=== PATIENT | female | born 1935 | race Caucasian/White ===

== ENCOUNTER 2018-06-03 10:38 | Emergency (ER) | payer OTHER, MEDICARE, SELFPAY ==
[2018-06-03] VITALS (7 sets, daily range): BP systolic 127–144; BP diastolic 71–95; PULSE 64–86; RESP 9–22; TEMP 36.7; O2SAT 98–99
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
[2018-06-03 11:50] LABS: Abs Immature Grans 0.03 k/cumm (0.0-0.09); Absolute Basophil Count 0.03 k/cumm (0.0-0.2); Absolute Eosinophil Count 0.07 k/cumm (0.0-0.7); Absolute Monocyte Count 0.65 k/cumm (0.11-0.7); Absolute Neutrophil Count 5.51 k/cumm (1.2-6.7); Basophils % 0.4; Eosinophils % 0.9; HCT 41.8 % (36.0-46.0); HGB 14.3 g/dL (12.0-15.5); Immature Grans % 0.4; Lymphocytes % 23.2; Mean Corp. HGB Concentration 34.2 g/dL (32.0-36.0); Mean Corpuscular Hemoglobin 31.6 pg (27.0-33.0); Mean Corpuscular Volume 92.5 fL (80-95); Mean Platelet Volume 10.7 fL (8.0-11.0); Monocytes % 7.9; Neutrophils % 67.2; Platelet Count 241 x1000/uL (130-400); RBC 4.52 m/cumm (4.00-5.20); RBC Distribution Width 14.1 % (11.7-14.6); White Blood Cell Count 8.19 k/cumm (4.4-10.8)
[2018-06-03] MEDS: Omnipaque 350 MG/ML 100 ML BTL IJ (11:59)
[2018-06-03 12:12] LABS: ALT 27 U/L (12-78); AST 22 U/L (15-37); Albumin 3.9 g/dL (3.4-5.0); Alkaline Phosphatase 108 U/L (46-116); Anion Gap 9.5 mmol/L (3-11); BUN 23 mg/dL (7-18); Bilirubin, Total 0.4 mg/dL (0.2-1.0); CO2 25.5 mmol/L (21.0-32.0); CREATININE 1.01 mg/dL (0.55-1.02); Calcium 10.6 mg/dL (8.5-10.1); Chloride 104 mmol/L (98-107); Estimated GFR 52.48 (mL/min/1.73m2); Glucose 116 mg/dL (70-100); Magnesium 2.3 mg/dL (1.8-2.4); Potassium 4.1 mmol/L (3.5-5.1); Sodium 139 mmol/L (136-145); Total Protein 7.5 g/dL (6.4-8.2); Troponin I < 0.02 ng/mL (0.00-0.06)
[2018-06-03] MEDS: Normal Saline 1,000 ML 1000 ML IV (12:15)
--- NOTE | 2018-06-03 12:16 | NUR.NOTE ---
Nursing Note: 1145: Pt to CT scan with ED RN. Spine percautions maintained. Pt is able to move all extremities before scan and following return to the ED. Pt continues alert/oriented.
[2018-06-03 12:29] LABS: Bilirubin Negative (Negative); Blood Trace-intact (Negative); Clarity Clear; Glucose Negative (Negative); Ketones Negative (Negative); Leukocyte Esterase Moderate (Negative); Nitrite Negative (Negative); Specific Gravity <= 1.005 (1.005-1.025); Urobilinogen 0.2 EU/dL (Up TO 0.2)
[2018-06-03 12:43] LABS: Epithelial Cells Few HPF (Negative)
[2018-06-03 12:44] LABS: Bacteria Many HPF (Negative); C & S Indicated? Yes; Casts Negative LPF (Negative); Crystals Negative HPF (Negative); Mucus Negative (Negative); Other Cells Mod Transitional (Negative)
--- NOTE | 2018-06-03 12:58 | NUR.NOTE ---
Nursing Note: ED PA attempts to reapply c-collar following exam but pt refuses and states I am really OK, I don't want it.
--- NOTE | 2018-06-03 13:00 | NUR.NOTE ---
Nursing Note: 1300: Pt sitting up on bed and receiving hydration and making phone calls for a ride home. Feeling better with mild STEIN that continues.
--- NOTE | 2018-06-07 15:28 | ED.FU.B ---
- Follow Up Follow Up Plan: Culture results from 06/03/2018. Urine culture growing E. coli 50,000-200,000 colonies/mL, appears pansensitive. I reviewed urinalysis from date of service and specimen did have some epithelial cells. I called and spoke with the patient about the results. Patient denies any urinary symptoms, she has no dysuria, urgency or increased urinary frequency. I advised that specimen may have been contaminated given that she has no symptoms and recommended that she follow-up with her primary care physician for repeat testing. Encouraged her to call her primary care physician as soon as possible to arrange this. Also noted that should she develop any symptoms she should return to emerge department for further treatment.
== END 2018-06-03 13:31 | disposition home or self-care (01) ==
PROVIDERS: Physician Assistant; Emergency Provider Student in an Organized Health Care Education/Training Program; PCP Nurse Practitioner Family
DX: S00.93XA Contusion of unspecified part of head, initial encounter (principal); R07.9 Chest pain, unspecified; M54.2 Cervicalgia; V03.00XA Pedestrian on foot injured in collision with car, pick-up truck or van in nontraffic accident, initial encounter; Y92.481 Parking lot as the place of occurrence of the external cause; N18.9 Chronic kidney disease, unspecified
CPT/HCPCS: 70450; 71260; 72125; 74177; 93005; 99285 ×2; 80053; 87077; 81003; 81015; 83735; 84484; 85025; 87086; 87186; 93010; J3490

== ENCOUNTER 2019-03-11 13:16 | Outpatient (REF) | payer MEDICARE, OTHER, SELFPAY | END 2019-03-11 13:36 | LOC: LBN 13:16 | PROVIDERS: PCP Nurse Practitioner Family; Visit Provider Nurse Practitioner | DX: R82.90 Unspecified abnormal findings in urine (principal) | CPT/HCPCS: 87077; 87086; 87186 ==

== ENCOUNTER 2019-04-14 10:02 | Outpatient (CLI) | payer MEDICARE, OTHER, SELFPAY ==
[2019-04-14 10:27] LABS: Abs Immature Grans 0.01 k/cumm (0.0-0.09); Absolute Basophil Count 0.05 k/cumm (0.0-0.2); Absolute Eosinophil Count 0.04 k/cumm (0.0-0.7); Absolute Lymphocyte Count 1.96 k/cumm (1.2-3.4); Absolute Monocyte Count 0.47 k/cumm (0.11-0.7); Absolute Neutrophil Count 6.21 k/cumm (1.2-6.7); Basophils % 0.6; Eosinophils % 0.5; HCT 42.6 % (36.0-46.0); HGB 14.4 g/dL (12.0-15.5); Immature Grans % 0.1; Lymphocytes % 22.4; Mean Corp. HGB Concentration 33.8 g/dL (32.0-36.0); Mean Corpuscular Hemoglobin 30.8 pg (27.0-33.0); Mean Platelet Volume 10.3 fL (8.0-11.0); Monocytes % 5.4; Platelet Count 300 x1000/uL (130-400); RBC 4.68 m/cumm (4.00-5.20); White Blood Cell Count 8.74 k/cumm (4.4-10.8)
[2019-04-14 11:37] LABS: Hemoglobin A1C 5.8 % (4.5-6.2)
[2019-04-14 11:47] LABS: ALT 25 U/L (12-78); AST 21 U/L (15-37); Alkaline Phosphatase 123 U/L (46-116); BUN 20 mg/dL (7-18); Bilirubin, Total 0.5 mg/dL (0.2-1.0); CREATININE 0.99 mg/dL (0.55-1.02); Chloride 102 mmol/L (98-107); Glucose 111 mg/dL (70-100); Potassium 4.4 mmol/L (3.5-5.1); Sodium 137 mmol/L (136-145); Total Protein 7.3 g/dL (6.4-8.2)
[2019-04-14 12:01] LABS: Calcium 11.4 mg/dL (8.5-10.1)
[2019-04-15 10:37] LABS: Parathyroid Hormone,Intact 145 pg/ml (19-88)
== END 2019-04-14 10:22 ==
PROVIDERS: PCP Nurse Practitioner Family; Visit Provider Nurse Practitioner Family
DX: E21.0 Primary hyperparathyroidism (principal); N18.9 Chronic kidney disease, unspecified; R73.01 Impaired fasting glucose
CPT/HCPCS: 36415; 80053; 83036; 83970; 85025

== ENCOUNTER 2020-07-14 02:41 | Outpatient (CLI) | payer MEDICARE, OTHER, SELFPAY ==
[2020-07-14 12:22] LABS: Anion Gap 6.9 mmol/L (3-11); BUN 17 mg/dL (7-18); CO2 28.1 mmol/L (21.0-32.0); CREATININE 0.98 mg/dL (0.55-1.02); Calcium 9.8 mg/dL (8.5-10.1); Chloride 103 mmol/L (98-107); Estimated GFR 54.07 (mL/min/1.73m2); Glucose 89 mg/dL (74-106); Potassium 4.3 mmol/L (3.5-5.1); Sodium 138 mmol/L (136-145)
== END 2020-07-14 03:01 ==
PROVIDERS: PCP Nurse Practitioner Family; Visit Provider Family Medicine
DX: N18.9 Chronic kidney disease, unspecified (principal)
CPT/HCPCS: 36415; 80048

== ENCOUNTER 2023-02-24 21:43 | Emergency (ER) | payer MEDICARE, SELFPAY ==
[2023-02-24 21:22] VITALS: BP 177/86; PULSE 61; RESP 17; TEMP 36.5; O2SAT 99
--- NOTE | 2023-02-24 21:30 | DI.RAD_ITS ---
Exam(s) XR PELVIS AP XR FEMUR RT EXAM: XR PELVIS AP CLINICAL HISTORY: right hip pain. TECHNIQUE: 2D digital imaging was performed. COMPARISON: CR,XR XR FEMUR RT from 02/24/2023 FINDINGS: BONES: Fracture seen extending through the basicervical region of the femoral neck. Displacement is well as a few small comminuted fragments. No additional fractures. No bony destructive lesion is se en. Degenerative changes Are noted in the lumbar spine. JOINTS: No dislocation present. Moderate degenerative changes are noted at the right hip. There is a left hip prosthesis which is unremarkable. Severe degenerative changes are noted in the knee. Deg enerative changes are seen at the SI joints SOFT TISSUE: Normal. IMPRESSION: Displaced basicervical fracture of the right femur. DATA REPOSITORY: RADIATION DOSE DELIVERED:
--- NOTE | 2023-02-24 21:42 | W.ED.GENAD ---
Discharge Plan Disposition Patient Disposition: Critical Access Hospital Specific Critical Access Facility: Other Discharge Details Chief Complaint: Orthopedic Clinical Impression: Closed fracture of right hip Primary Care Provider: Kiki Barbosa ED Provider: Tonny Lagos Home Meds and New Rx's Prescriptions: No Action calcium carbonate 500 mg calcium (1,250 mg) tablet 1,000 mg PO DAILY lutein 40 mg capsule 40 mg PO DAILY Rx Instructions: administer with meals trazodone 50 mg tablet 25 mg PO HS Qty: 90 3RF cyanocobalamin (vitamin B-12) [Vitamin B-12] 1,000 MCG tablet extended release 1,000 mcg PO DAILY cholecalciferol (vitamin D3) 25 mcg (1,000 unit) tablet 2,000 unit PO DAILY mirtazapine 7.5 mg tablet 7.5 mg PO HS Qty: 90 2RF omeprazole 40 mg capsule,delayed release(DR/EC) 40 mg PO BID Qty: 180 1RF Rx Instructions: Take 40 mg twice daily at least 30 minutes before meals Medical Decision Making 87-year-old female with a past medical history of high cholesterol, GERD, CKD, on no blood thinners presents today after right hip pain. Patient states that she fell onto her right hip, she did not hit her head. She did not hit anything else. She had no loss of consciousness. She was not able to get up after this. She did call 911 and EMS brought her here. Pain is present in the right hip. Worsened with movement. Improved by nothing. She denies numbness or tingling. No chest pain lower leg pain, no other complaints at this time. Physical exam demonstrates pain at the right hip. Concern for right hip fracture. No other evidence of injury. No pain in the distal leg, chest or abdomen. We will get an x-ray for further assessment. We will monitor closely, insert a Bertrand and reassess. Patient does not want anything for pain at this time. 12:06 AM Patient has remained stable here in the ED. X-rays show evidence of a femoral neck fracture on the right. No other evidence of acute injury. Patient remained stable. Unfortunately we do not have orthopedics here for the next 5 days as [place]. We did reach [facility] they are [facility] and they have no orthopedics, Jeff and they are full. We did reach out to [facility] and they do have availability. I spoke with Dr. Ruano of orthopedics and he accepts the patient for admission. We will reach out to the hospitalist team for the medical admission component. Spoke with Dr. Adams of the hospitalist medicine team. She agrees with transfer and accepts the patient. Patient will be transferred. Discussed the case with patient's family who is at bedside. I have extensively reviewed the treatment plan with the patient. I have addressed all patient concerns at this time. I have also discussed the plan with the admitting physician and they agree with the current assessment and plan and have agreed to assume responsibility for the patient. All parties demonstrate verbal understanding and agreement with our assessment and plan at this time. The documentation in this chart was dictated using Quick [employer] dictation software. Please excuse any dictation errors. FINDINGS: Bones/joints: Displaced basicervical femoral neck fracture. The femoral head is seated within the acetabulum. Femoral shaft is unremarkable. No distal fracture. Soft tissues: No soft tissue foreign body. IMPRESSION: Displaced basicervical right femoral neck fracture. Thank you for allowing us to participate in the care of your patient. Dictated and Authenticated by: Luis Yin MD 02/24/2023 11:44 PM Eastern Time ([place] & [place]) FINDINGS: Bones/joints: Displaced right femoral neck fracture. No evidence of pelvic fracture or diastasis. Left hip total arthroplasty. No dislocation. Lumbosacral degenerative features. Soft tissues: Soft tissues are unremarkable. IMPRESSION: Displaced right femoral neck fracture. Thank you for allowing us to participate in the care of your patient. Dictated and Authenticated by: Luis Yin MD 02/24/2023 11:32 PM Eastern Time ([place] & [place]) FINDINGS: Lungs: Clear lungs. No acute consolidation. Pleural spaces: No pleural effusion. No pneumothorax. Heart/Mediastinum: Mild cardiac enlargement. Bones/joints: Degenerative thoracic spine disease. Right shoulder prosthesis. Old healed posterior right 5th and 6th rib fractures. IMPRESSION: 1. No acute cardiopulmonary changes. 2. Degenerative skeletal features. Old right rib fractures. 3. Mild cardiac enlargement. Thank you for allowing us to participate in the care of your patient. Dictated and Authenticated by: Luis Yin MD 02/24/2023 11:43 PM Eastern Time ([place] & [place]) HPI General Date/Time Provider Initiated Documentation: 02/24/23 22:17. HPI Narrative: 87-year-old female with a past medical history of high cholesterol, GERD, CKD, on no blood thinners presents today after right hip pain. Patient states that she fell onto her right hip, she did not hit her head. She did not hit anything else. She had no loss of consciousness. She was not able to get up after this. She did call 911 and EMS brought her here. Pain is present in the right hip. Worsened with movement. Improved by nothing. She denies numbness or tingling. No chest pain lower leg pain, no other complaints at this time. Related Data Home Medications Medication Instructions Recorded Confirmed cyanocobalamin (vitamin B-12) 1,000 mcg PO DAILY 07/10/17 02/24/23 1,000 mcg tablet,extended release (Vitamin B-12 ER) calcium carbonate 500 mg calcium 1,000 mg PO DAILY 07/15/20 02/24/23 (1,250 mg) tablet cholecalciferol (vitamin D3) 25 2,000 unit PO DAILY 07/15/20 02/24/23 mcg (1,000 unit) tablet lutein 40 mg capsule 40 mg PO DAILY 07/15/20 02/24/23 trazodone 50 mg tablet 25 mg PO HS insomnia #90 tab-caps 07/27/21 02/24/23 mirtazapine 7.5 mg tablet 7.5 mg PO HS #90 tab-caps 10/12/21 02/24/23 omeprazole 40 mg capsule,delayed 40 mg PO BID #180 tab-caps 01/06/22 02/24/23 release Previous Rx's Medication Instructions Recorded trazodone 50 mg tablet 25 mg PO HS insomnia #90 tab-caps 07/27/21 mirtazapine 7.5 mg tablet 7.5 mg PO HS #90 tab-caps 10/12/21 omeprazole 40 mg capsule,delayed 40 mg PO BID #180 tab-caps 01/06/22 release Allergies Allergy/AdvReac Type Severity Reaction Status Date / Time No Known Drug Allergies Allergy Verified 07/27/21 14:10 General Stated Complaint: Orthopedic MINERVA: 3 Review of Systems All systems reviewed & are unremarkable except as noted in HPI and below PFSH All Active Problems (Updated 02/25/23 @ 00:44 by Tonny Lagos DO) Closed fracture of right hip (Acute) Post-nasal drip (Acute) Chronic kidney disease, unspecified (Chronic 08/20/17) Gastroesophageal reflux disease (Chronic) Hyperlipidemia, unspecified (Chronic 08/20/17) IFG (impaired fasting glucose) (Chronic 08/20/17) Insomnia, unspecified (Chronic 08/29/17) Unspecified osteoarthritis, unspecified site (Chronic) Medical History Anxiety and depression Pneumonia x6-12 times, hospitalized once Surgical History (R)Knee Tendon Repair (08/10/15) (R)Shoulder Replacement (12/19/16) [facility] Arthroplasty of knee (~1989) L knee Jojo Cholecystectomy (~1964) Seun Extraction of cataract (~2014) B/L Foot surgery, left (~2005) Open Carpal Tunnel release (~1998) 1998-left hand, [address] [facility] Rectocele, Paravaginal repair (~1989) had 3 cuctocele/rectocele surgeries at [facility] Replacement of total knee joint (05/08/15) (L) S/P parathyroidectomy (~11/2019) Total replacement of hip (~2011) (L) Vaginal hysterectomy (~1977) [place] Family History Father , 64 Neoplasm Lung CA (smoker) Brother , Cancer Neoplasm Lung CA Son Neoplasm Leukemia Mother , Old age at age 99. No problems noted. Brother Neoplasm Prostate CA Brother , Liver CA at age 75. Neoplasm Liver CA Social History Smoking/Tobacco Use Status: Former Tobacco Use Smoking risk assessment performed?: Yes Alcohol Intake: current Alcohol Intake frequency: a few times a week Alcohol type: wine Drug use: Never Substance use type: does not use Caregiver/Support person: No Housing: house Number of Children: 3 Communication Needs: None What is your relationship status?: Panel score (0-1 are the most socially isolated patients): 0 What type of physical activity do you participate in: other Details: housework, gardening Frequency: daily Seatbelt use: always Working smoke detector in home: Yes Carbon monox detector in home: Yes Do you feel safe at home: Yes Do you feel safe in your relationship?: Yes Exam Narrative Exam Narrative: 1.Const: Well-nourished, Well-developed, appearing stated age 2.Eyes: PERRL, no conjunctival injection, and symmetrical lids. 3.ENT: Atraumatic external nose and ears. Moist MM. Neck: Symmetric, trachea midline, No thyromegaly. 4.CVS: +S1/S2, No murmurs or gallops. Peripheral pulses 2+ and equal in all extremities. Brisk capillary refill in all extremities. 5.RESP: Unlabored respiratory effort. Clear to auscultation bilaterally. No wheezes rales or rhonchi 6.GI: Soft, Nontender/Nondistended, No hepatosplenomegaly. No guarding or rebound. 7.MSK: Normocephalic patient demonstrates pain in her right passively. No pain with palpation though. Pain with logroll of the right leg given movement. At this time leg is slightly laterally rotated, but it is difficult to discern potential shortening. Pulses are intact. Sensation is intact distally. Pelvis is stable. 8.Skin: Warm, Dry. No rashes or lesions. 9.Neuro: orthopedic coder II-XII grossly intact. Sensation grossly intact, no focal neurologic deficits. 10.Psych: (AAO) x3. Appropriate mood and affect Course Vital Signs Vital signs: Vital Signs Temperature 36.5 C 02/24/23 21: Pulse 61 02/24/23 21: Respiratory Rate 17 02/24/23 21: Blood Pressure 177/86 H 02/24/23 21: Pulse Oximetry 99 02/24/23 21: Temperature 36.5 C 02/24/23 21: Temperature Source Temporal Artery Scan 02/24/23 21: Pulse 61 02/24/23 21: Respiratory Rate 17 02/24/23 21:22 Respiratory Effort Normal 02/24/23 21: Blood Pressure 177/86 H 02/24/23 21: Blood Pressure Position Sitting 02/24/23 21:22 Pulse Oximetry 99 02/24/23 21:22 Oxygen Delivery Method Room Air 02/24/23 21:22 Oxygen Flow Rate 0 02/24/23 21:22 Pain Level 4 02/24/23 21:22
[2023-02-24 21:52] LABS: Abs Immature Grans 0.08 10^3/uL (0.0-0.06); Absolute Basophil Count 0.06 10^3/uL (0.0-0.2); Absolute Eosinophil Count 0.17 10^3/uL (0.0-0.7); Absolute Lymphocyte Count 2.28 10^3/uL (1.2-3.4); Absolute Monocyte Count 0.53 10^3/uL (0.1-0.8); Basophils % 0.7; Eosinophils % 2.1; HCT 41.4 % (36.0-46.0); HGB 14.2 g/dL (11.2-15.7); Lymphocytes % 28.4; MCH 32.3 pg (27.0-33.0); MCHC 34.3 % (32.0-36.0); MCV 94 fL (80-95); MPV 9.9 fL (8.0-11.0); Monocytes % 6.6; Neutrophils % 61.2; Platelet Count 262 10^3/uL (130-400); RDW 14.1 % (11.7-14.6); RDW-SD 48.8 fL; WBC 8.02 10^3/uL (4.4-10.8)
[2023-02-24] MEDS: ACETAMINOPHEN 1,000 MG/100 ML BTL 400 MG IVPB (21:55)
[2023-02-24 22:06] LABS: ALT 27 U/L (14-59); AST 22 U/L (15-37); Albumin 4.3 g/dL (3.4-5.0); Alkaline Phosphatase 93 U/L (46-116); Anion Gap 8.1 mmol/L (3-11); BUN 27 mg/dL (7-18); Bilirubin, Total 0.4 mg/dL (0.2-1.0); CO2 25.9 mmol/L (21.0-32.0); CREATININE 0.9 mg/dL (0.55-1.02); Calcium 9.4 mg/dL (8.5-10.1); Chloride 102 mmol/L (98-107); Estimated GFR 62.26 (mL/min/1.73m2); Glucose 104 mg/dL (74-106); Potassium 3.7 mmol/L (3.5-5.1); Sodium 136 mmol/L (136-145); Total Protein 7.7 g/dL (6.4-8.2)
--- NOTE | 2023-02-24 22:48 | DI.RAD_ITS ---
Exam(s) XR CHEST 1V IN DI DEPT EXAM: XR CHEST 1V IN DI DEPT CLINICAL HISTORY: eval for hip surgery TECHNIQUE: 2D digital imaging was performed. COMPARISON: CR CHEST 2 VIEWS PA,LAT from 02/07/2018 FINDINGS: LUNGS: Clear. No pleural abnormality seen. HEART: Normal size. AORTA: Normal diameter. Mildly tortuous. BONES: Old right rib fractures. Degenerative changes in the spine. Right shoulder prosthesis. Surg ical clip projecting at medial end of right clavicle. Soft tissues: Unremarkable. IMPRESSION: No acute findings. DATA REPOSITORY: RADIATION DOSE DELIVERED:
--- NOTE | 2023-02-24 23:32 | DI.VRAD_ITS ---
PROCEDURE INFORMATION: Exam: XR Pelvis Exam date and time: 02/24/2023 10:42 PM Age: 87 years old Clinical indication: Prior surgery; Patient HX: Right hip pain TECHNIQUE: Imaging protocol: Radiologic exam of the pelvis. Views: 1 or 2 view. COMPARISON: CT CHEST ABD PELVIS WITH CONTRAST 06/03/2018 11:38 AM FINDINGS: Bones/joints: Displaced right femoral neck fracture. No evidence of pelvic fracture or diastasis. Left hip total arthroplasty. No dislocation. Lumbosacral degenerative features. Soft tissues: Soft tissues are unremarkable. IMPRESSION: Displaced right femoral neck fracture. Dictated and Authenticated by: uLis Yin MD. Ordering:NORRIS Lancaster MD
--- NOTE | 2023-02-24 23:43 | DI.VRAD_ITS ---
PROCEDURE INFORMATION: Exam: XR Chest Exam date and time: 02/24/2023 10:53 PM Age: 87 years old Clinical indication: Injury or trauma; Other: Right hip FX; Prior surgery; Patient HX: Fall, R hip FX TECHNIQUE: Imaging protocol: Radiologic exam of the chest. Views: 1 view. COMPARISON: CT CHEST ABD PELVIS WITH CONTRAST 06/03/2018 11:38 AM FINDINGS: Lungs: Clear lungs. No acute consolidation. Pleural spaces: No pleural effusion. No pneumothorax. Heart/Mediastinum: Mild cardiac enlargement. Bones/joints: Degenerative thoracic spine disease. Right shoulder prosthesis. Old healed posterior right 5th and 6th rib fractures. IMPRESSION: 1. No acute cardiopulmonary changes. 2. Degenerative skeletal features. Old right rib fractures. 3. Mild cardiac enlargement. Dictated and Authenticated by: Luis Yin MD. Ordering:NORRIS Lancaster MD
--- NOTE | 2023-02-24 23:44 | DI.VRAD_ITS ---
PROCEDURE INFORMATION: Exam: XR Right Femur Exam date and time: 02/24/2023 10:43 PM Age: 87 years old Clinical indication: Injury or trauma; Blunt trauma; Hip and thigh or upper leg; Right; Patient HX: Fall, R/O FX TECHNIQUE: Imaging protocol: Radiologic exam of the right femur. Views: 2 views. COMPARISON: CR XR PELVIS AP 02/24/2023 10:42 PM FINDINGS: Bones/joints: Displaced basicervical femoral neck fracture. The femoral head is seated within the acetabulum. Femoral shaft is unremarkable. No distal fracture. Soft tissues: No soft tissue foreign body. IMPRESSION: Displaced basicervical right femoral neck fracture. Dictated and Authenticated by: Luis Yin MD. Ordering:NORRIS Lancaster MD
[2023-02-25] MEDS: MORPHine 4 MG/ML SYR IVP (00:16)
--- NOTE | 2023-02-25 00:26 | NUR.NOTE ---
Nursing Note: Pt and family member updated on status.
--- NOTE | 2023-02-25 00:33 | NUR.NOTE ---
Nursing Note: Report called to [facility] in [place], [place]. Report called to Nita Solomon RN.
[2023-02-25 00:37] VITALS: BP 141/79; PULSE 64; O2SAT 98
[2023-02-25] MEDS: HYDROmorphone 2 MG/ML SYR 1 MG IVP (01:11)
--- NOTE | 2023-02-25 01:56 | NUR.NOTE ---
Nursing Note:Report given to Daija EMT-B with [facility].
== END 2023-02-25 01:28 | disposition critical access hospital (66) ==
PROVIDERS: Emergency Provider Student in an Organized Health Care Education/Training Program; PCP Nurse Practitioner Family
DX: S72.001A Fracture of unspecified part of neck of right femur, initial encounter for closed fracture (principal); E78.00 Pure hypercholesterolemia, unspecified; N18.9 Chronic kidney disease, unspecified; W19.XXXA Unspecified fall, initial encounter
CPT/HCPCS: 51702; 73552; 80053; 96374; 96375; 99284; 71045; 72170; 85025; J0131; J1170; J2270

== ENCOUNTER 2023-03-30 08:41 | Outpatient (CLI) | payer MEDICARE, SELFPAY ==
--- NOTE | 2023-03-30 08:00 | DI.RAD_ITS ---
Exam(s) XR HIP RT AP LAT ONLY EXAM: XR HIP RT AP LAT ONLY CLINICAL HISTORY: R hip fx. TECHNIQUE: 2D digital imaging was performed. COMPARISON: CR,XR XR FEMUR RT from 02/24/2023 FINDINGS: Two views Satisfactory position of prosthesis. No fracture or loosening evident. IMPRESSION: Satisfactory appearance. DATA REPOSITORY: RADIATION DOSE DELIVERED:
== END 2023-03-30 08:42 | disposition home or self-care (01) ==
LOC: DIORS 08:42
PROVIDERS: PCP Nurse Practitioner Family; Referring Provider Nurse Practitioner Family; Visit Provider Physician Assistant
DX: Z96.641 Presence of right artificial hip joint; S72.001D Fracture of unspecified part of neck of right femur, subsequent encounter for closed fracture with routine healing; W19.XXXD Unspecified fall, subsequent encounter
CPT/HCPCS: 99213; 73502

== ENCOUNTER 2025-06-04 06:16 | Emergency (ER) | payer MEDICARE, SELFPAY ==
--- NOTE | 2025-06-04 06:19 | W.ED.GENAD ---
Discharge Plan Disposition Patient Disposition: Home Condition: Good Discharge Details Clinical Impression: Right wrist pain Primary Care Provider: Kiki Barbosa ED Provider: Nik Carvalho Meds and New Rx's Prescriptions: Continued calcium carbonate 500 mg calcium (1,250 mg) tablet 1,000 mg PO DAILY lutein 40 mg capsule 40 mg PO DAILY Rx Instructions: administer with meals trazodone 50 mg tablet 25 mg PO HS Qty: 90 3RF cyanocobalamin (vitamin B-12) [Vitamin B-12] 1,000 MCG tablet extended release 1,000 mcg PO DAILY cholecalciferol (vitamin D3) 25 mcg (1,000 unit) tablet 2,000 unit PO DAILY mirtazapine 7.5 mg tablet 7.5 mg PO HS Qty: 60 0RF omeprazole 40 mg capsule,delayed release(DR/EC) 40 mg PO DAILY Qty: 90 0RF Rx Instructions: Take 40 mg once daily at least 30 minutes before first meal Discharge Instructions Additional Instructions: You were seen for right wrist pain that has worsened over time. A splint will likely help with comfort. You may try ibuprofen or acetaminophen for pain. You should follow up with PCP next week. Return to ED for severe worsening pain, fever, weakness, numbness, other concerns. Referrals: Kiki Barbosa, RANJEET [Primary Care Provider, Medicine] HPI General Mode of arrival: ambulatory. Date/Time Provider Initiated Documentation: 06/04/25 06:19. Limitations to Documentation: no limitations. Information obtained by: patient and RN notes reviewed. HPI Narrative: Patient presents to ED with right wrist pain. Patient denies any discrete injury. Pain has been ongoing and worsening over time. Certain movements cause more pain. Denies weakness or numbness. Denies any redness or fever. Did take aspirin last night but had not really been taking anything prior. She is right-hand dominant. Related Data Home Medications ?Medication ?Instructions ?Recorded ?Confirmed cyanocobalamin (vitamin B-12) 1,000 mcg PO DAILY 07/10/17 06/04/25 1,000 mcg tablet,extended release (Vitamin B-12 ER) calcium carbonate 1,000 mg PO DAILY 07/15/20 06/04/25 cholecalciferol (vitamin D3) 25 2,000 unit PO DAILY 07/15/20 06/04/25 mcg (1,000 unit) tablet lutein 40 mg capsule 40 mg PO DAILY 07/15/20 06/04/25 trazodone 50 mg tablet 25 mg (1/2 x 50 mg) PO HS insomnia 07/27/21 06/04/25 #90 tab-caps mirtazapine 7.5 mg tablet 7.5 mg PO HS #60 tab-caps 03/22/23 06/04/25 omeprazole 40 mg capsule,delayed 40 mg PO DAILY #90 tab-caps 03/23/23 06/04/25 release Previous Rx's ?Medication ?Instructions ?Recorded trazodone 50 mg tablet 25 mg (1/2 x 50 mg) PO HS insomnia 07/27/21 #90 tab-caps mirtazapine 7.5 mg tablet 7.5 mg PO HS #60 tab-caps 03/22/23 omeprazole 40 mg capsule,delayed 40 mg PO DAILY #90 tab-caps 03/23/23 release Allergies Allergy/AdvReac Type Severity Reaction Status Date / Time No Known Drug Allergies Allergy Unknown Verified 06/04/25 06:22 General MINERVA: 3 Exam Narrative Exam Narrative: Const: WDWN elderly female in NAD. VS per triage. HEENT: NC/AT. Normal facial exam. Neck: Supple. Trachea midline. Lungs: Normal respiratory effort. Cor: RRR. Good radial pulses. Neuro: A+O x 3. Normal speech, mentation, gait. Cranial nerves II - XII grossly intact. No gross motor or sensory deficit. Ext: Right wrist without tenderness. No erythema or warmth. Able to open and close hand ok. Pain and somewhat limited ROM at wrist mostly with extension, pain occurs in volar aspect of wrist. Medical Decision Making Patient presenting with right wrist pain that limits range of motion. There is no redness or warmth to the joint. There is no bony tenderness. Pain has been increasing over time and is not acute. She did not have any discrete injury. She has not really been taking anything for pain except for aspirin last night. I do not feel imaging is necessary as she has no acute injury and no bony tenderness. Will place in wrist splint for comfort. Try low dose ibuprofen for next few days and follow up with PCP. Return precautions provided. PFSH All Active Problems (Updated 06/04/25 @ 06:33 by Nik Carvalho MD) Right wrist pain (Acute) History of right hip hemiarthroplasty (Acute 02/26/23) Right Bipolar Femoral Hemiarthroplasty @ [facility] Alcohol use disorder (Acute) Post-nasal drip (Acute) Chronic kidney disease, unspecified (Chronic 08/20/17) Gastroesophageal reflux disease (Chronic) Hyperlipidemia, unspecified (Chronic 08/20/17) IFG (impaired fasting glucose) (Chronic 08/20/17) Insomnia, unspecified (Chronic 08/29/17) Unspecified osteoarthritis, unspecified site (Chronic) Medical History (Updated 06/04/25 @ 06:33 by Nik Carvalho MD) Anxiety and depression Pneumonia x6-12 times, hospitalized once Surgical History S/P parathyroidectomy (~11/2019) Replacement of total knee joint (05/08/15) (L) Total replacement of hip (~2011) (L) Rectocele, Paravaginal repair (~1989) had 3 cuctocele/rectocele surgeries at [facility] Open Carpal Tunnel release (~1998) 1998-left hand, 2004 Right hand [facility] Vaginal hysterectomy (~1977) [place] Foot surgery, left (~2005) Cholecystectomy (~1964) Seun Extraction of cataract (~2014) B/L Arthroplasty of knee (~1989) L knee [facility] (R)Shoulder Replacement (12/19/16[place] [facility] [place]Knee Tendon Repair (08/10/15) Family History Father , 64 Neoplasm Lung CA (smoker) Brother , Cancer Neoplasm Lung CA Son Neoplasm Leukemia Mother , Old age at age 99. No problems noted. Brother Neoplasm Prostate CA Brother , Liver CA at age 75. Neoplasm Liver CA Social History Smoking/Tobacco Use Status: Former Tobacco Use Smoking risk assessment performed?: Yes Alcohol Intake: current Alcohol Intake frequency: a few times a week Alcohol type: wine Drug use: Never Substance use type: does not use Caregiver/Support person: No Housing: house Number of Children: 3 Communication Needs: None What is your relationship status?: Panel score (0-1 are the most socially isolated patients): 0 What type of physical activity do you participate in: other Details: housework, gardening Frequency: daily Seatbelt use: always Working smoke detector in home: Yes Carbon monox detector in home: Yes Do you feel safe at home: Yes Do you feel safe in your relationship?: Yes
[2025-06-04 06:20] VITALS: BP 152/106; PULSE 84; RESP 16; TEMP 36.4; O2SAT 96
[2025-06-04 06:39] VITALS: PULSE 77; RESP 18; O2SAT 95
== END 2025-06-04 06:41 | disposition home or self-care (01) ==
LOC: ER 06:47
PROVIDERS: Emergency Provider Emergency Medicine; PCP Nurse Practitioner Family
DX: M25.531 Pain in right wrist (principal)
CPT/HCPCS: 99282 ×2